=== PATIENT | male | born 1985 | race Caucasian/White ===

== ENCOUNTER 2023-07-14 08:54 | Emergency (ER) | payer OTHER ==
[~2023-07-14] VITALS: Ht 167.6 cm; Wt 136.0 kg
--- OUTSIDE RECORDS SUMMARY | 2023-07-14 08:56 | XMS ---
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 Mare has no Care Guidelines for this patient. Niko VISIT COUNT (12 MO.) 2 [facility] [place] [facility] TOTAL 2 NOTE: Visits indicate total known visits. ED/C VISIT TRACKING (12 MO.) 07/14/2023 08:55 [facility] TYPE: Emergency COMPLAINT: - WOUND CHECK 07/13/2023 17:23 [facility] TYPE: Emergency COMPLAINT: - DOG BIT INPATIENT VISIT TRACKING (12 MO.) No inpatient visits to display in this time frame [email or web address]
[2023-07-14] MEDS ORDERED: AMOX TR-K CLV1 EAC1 PO (09:10)
[2023-07-14] MEDS ORDERED: DIPHTH,PERTUSS(ACELL),TET VAC 0.5 ML SYRINGE IM ONE (09:15)
[2023-07-14 09:36] VITALS: BP 121/79
== END 2023-07-14 09:38 | disposition home or self-care (01) ==
LOC: ED 08:54
DX: S51.852A Open bite of left forearm, initial encounter (principal); W54.0XXA Bitten by dog, initial encounter
CPT/HCPCS: 90471; 90715; 99283